=== PATIENT | female | born 1940 | race Caucasian/White ===

== ENCOUNTER 2017-07-23 11:32 | Day surgery (SDC) | payer OTHER, SELFPAY ==
[~2017-07-23] VITALS: Ht 149.9 cm; Wt 56.0 kg
[~2017-07-23 11:32] MED LIST: ALBU90OI6; AMLO5 PO; ASPI325EC PO; ASPI81CH; CILO50; CLOP75 PO; HYDCHL25 PO; IBUP800; LEVSOD100 PO; LISI5; OXYC5; PRAV20; PROCHLORPERAZINE; TIOT18
== END 2017-07-23 14:20 | disposition home or self-care (01) ==
LOC: ORSCSDS 11:32
PROVIDERS: Orthopaedic Surgery
PROC: 01N50ZZ Release Median Nerve, Open Approach (ICD-10-PCS; principal; 2017-07-23 12:45)
DX: G56.01 Carpal tunnel syndrome, right upper limb (principal); E03.9 Hypothyroidism, unspecified; E78.5 Hyperlipidemia, unspecified; I25.2 Old myocardial infarction; I10 Essential (primary) hypertension; F32.9 Major depressive disorder, single episode, unspecified; J44.9 Chronic obstructive pulmonary disease, unspecified; F17.210 Nicotine dependence, cigarettes, uncomplicated; Z79.82 Long term (current) use of aspirin; Z79.899 Other long term (current) drug therapy
CPT/HCPCS: J2250; J3010; J7120

== ENCOUNTER 2017-09-17 14:37 | Day surgery (SDC) | payer OTHER, SELFPAY ==
[~2017-09-17] VITALS: Ht 149.9 cm; Wt 56.3 kg
== END 2017-09-17 17:25 | disposition home or self-care (01) ==
LOC: ORSCSDS 14:37
PROVIDERS: Orthopaedic Surgery
PROC: 01N50ZZ Release Median Nerve, Open Approach (ICD-10-PCS; principal; 2017-09-17 16:00)
DX: G56.02 Carpal tunnel syndrome, left upper limb (principal); I10 Essential (primary) hypertension; J44.9 Chronic obstructive pulmonary disease, unspecified; E03.9 Hypothyroidism, unspecified; E78.5 Hyperlipidemia, unspecified; I73.9 Peripheral vascular disease, unspecified; Z79.899 Other long term (current) drug therapy; F17.210 Nicotine dependence, cigarettes, uncomplicated
CPT/HCPCS: J2250; J3010; J7120

== ENCOUNTER 2018-07-20 13:16 | Inpatient (IN) | payer OTHER ==
[~2018-07-20] VITALS: Ht 147.3 cm; Wt 63.5 kg
[~2018-07-20 13:16] MED LIST changes: -IBUP800; +IBUP800 PO; -TIOT18; +TIOT18 INH
[2018-07-20] MEDS ORDERED: ALBU90OI61 INH (13:58)
[2018-07-20 13:59] LABS: BASOPHILS ABSOLUTE AUTO 0.04 K/mm3 (0.00-0.23); BASOPHILS PERCENT AUTO 0 % (0-2); EOSINOPHILS ABSOLUTE AUTO 0.01 K/mm3 (0.00-0.68); EOSINOPHILS PERCENT AUTO 0 % (0-6); Hematocrit 24.2 % (33.0-51.0); Hemoglobin 7.3 g/dL (11.5-16.0); IMMATURE GRAN ABSOLUTE AUTO 0.06 K/mm3 (0.00-0.10); IMMATURE GRAN PERCENT AUTO 1 % (0-1); LYMPHOCYTES ABSOLUTE AUTO 1.68 K/mm3 (0.84-5.20); LYMPHOCYTES PERCENT AUTO 15 % (21-46); MONOCYTES ABSOLUTE AUTO 1.19 K/mm3 (0.16-1.47); MONOCYTES PERCENT AUTO 10 % (4-13); Mean Corpuscular HGB 28.6 pg (26.0-34.0); Mean Corpuscular HGB Conc 30.2 g/dL (31.5-36.5); Mean Corpuscular Volume 95 fL (80-100); Mean Platelet Volume 8.5 fL (9.1-12.4); NEUTROPHILS ABSOLUTE AUTO 8.45 K/mm3 (1.96-9.15); NEUTROPHILS PERCENT AUTO 74 % (41-73); Platelet Count 549 K/mm3 (150-400); RDW Coefficient Variation 15.2 % (11.7-14.2); RDW Standard Deviation 52.5 fL (35.1-46.3); Red Blood Cell Count 2.55 M/mm3 (3.80-5.20); White Blood Cell Count 11.43 K/mm3 (4.00-11.30)
[2018-07-20] MEDS ORDERED: CLOP75 PO (14:00)
[2018-07-20] MEDS ORDERED: ASPI81CH PO (14:00)
[2018-07-20] MEDS ORDERED: FISH OIL 500 M1 EAC1 PO (14:01)
[2018-07-20 14:19] LABS: Alanine Aminotransfer (ALT/SGP 18 U/L (12-78); Albumin, Blood 3.3 g/dL (3.4-5.0); Albumin/Globulin Ratio 0.8 (0.8-1.8); Alk Phos 86 U/L (50-136); Anion Gap 10 mmol/L (6-16); Aspartate Aminotrans (AST/SGOT 13 U/L (12-37); Bilirubin, Total 0.4 mg/dL (0.1-1.0); Blood Urea Nitrogen 20 mg/dL (8-24); Bun/Creatinine Ratio 27.5 (12.0-20.0); CO2, Blood 25 mmol/L (21-32); Calcium, Blood 8.6 mg/dL (8.5-10.1); Chloride, Blood 98 mmol/L (98-108); Creatinine, Blood 0.73 mg/dL (0.40-1.00); Globulin, Blood 4.2 g/dL (2.2-4.0); Glomerular Filtration Rate >60 (60-); Glucose, Blood 96 mg/dL (70-99); Potassium, Blood 4.1 mmol/L (3.5-5.5); Sodium, Blood 133 mmol/L (136-145); Total Protein, Blood 7.5 g/dL (6.4-8.2); Troponin I <0.015 ng/mL (0.000-0.040)
--- NOTE | 2018-07-20 17:22 | NUR ---
ECHOCARDIOGRAM COMPLETED
[2018-07-20 18:31] LABS: Percent Saturation 5.1 % (15.0-50.0)
[2018-07-20] MEDS ORDERED: LEVSOD100 PO (21:25)
[2018-07-21] MEDS ORDERED: ROSU5 PO (00:35)
[2018-07-21] MEDS ORDERED: Cymbalta30 MG PO (00:37)
[2018-07-21] MEDS ORDERED: OXYC5 PO (00:38)
[2018-07-21] MEDS ORDERED: VITAMIN D-32000 UNIT PO (00:39)
[2018-07-21 04:08] LABS: BASOPHILS ABSOLUTE AUTO 0.05 K/mm3 (0.00-0.23); BASOPHILS PERCENT AUTO 1 % (0-2); EOSINOPHILS ABSOLUTE AUTO 0.02 K/mm3 (0.00-0.68); EOSINOPHILS PERCENT AUTO 0 % (0-6); Hematocrit 25.5 % (33.0-51.0); Hemoglobin 7.9 g/dL (11.5-16.0); IMMATURE GRAN ABSOLUTE AUTO 0.04 K/mm3 (0.00-0.10); IMMATURE GRAN PERCENT AUTO 0 % (0-1); LYMPHOCYTES ABSOLUTE AUTO 0.84 K/mm3 (0.84-5.20); LYMPHOCYTES PERCENT AUTO 9 % (21-46); MONOCYTES ABSOLUTE AUTO 1.43 K/mm3 (0.16-1.47); MONOCYTES PERCENT AUTO 15 % (4-13); Mean Corpuscular HGB 28.4 pg (26.0-34.0); Mean Platelet Volume 8.6 fL (9.1-12.4); NEUTROPHILS ABSOLUTE AUTO 7.38 K/mm3 (1.96-9.15); NEUTROPHILS PERCENT AUTO 76 % (41-73); Platelet Count 448 K/mm3 (150-400); RDW Coefficient Variation 15.8 % (11.7-14.2); RDW Standard Deviation 53.3 fL (35.1-46.3); Red Blood Cell Count 2.78 M/mm3 (3.80-5.20); White Blood Cell Count 9.76 K/mm3 (4.00-11.30)
[2018-07-21 04:09] LABS: Mean Corpuscular Volume 92 fL (80-100)
[2018-07-21 04:50] LABS: Alanine Aminotransfer (ALT/SGP 17 U/L (12-78); Albumin, Blood 2.9 g/dL (3.4-5.0); Albumin/Globulin Ratio 0.8 (0.8-1.8); Alk Phos 78 U/L (50-136); Anion Gap 10 mmol/L (6-16); Aspartate Aminotrans (AST/SGOT 20 U/L (12-37); Bilirubin, Total 0.8 mg/dL (0.1-1.0); Blood Urea Nitrogen 21 mg/dL (8-24); Bun/Creatinine Ratio 27.2 (12.0-20.0); CO2, Blood 24 mmol/L (21-32); Calcium, Blood 7.7 mg/dL (8.5-10.1); Chloride, Blood 100 mmol/L (98-108); Creatinine, Blood 0.77 mg/dL (0.40-1.00); Globulin, Blood 3.7 g/dL (2.2-4.0); Glomerular Filtration Rate >60 (60-); Glucose, Blood 125 mg/dL (70-99); Potassium, Blood 4.1 mmol/L (3.5-5.5); Sodium, Blood 134 mmol/L (136-145); Total Protein, Blood 6.6 g/dL (6.4-8.2)
--- NOTE | 2018-07-21 06:49 | NUR ---
SHIFT SUMMARY PATIENT ADMITTED AT THE BEGINNING OF THE SHIFT. PATIENT VERY PLEASENT AND COOPERATIVE THROUGHOUT THE NIGHT. PATIENT'S ADMIT COMPLETED PER PATIENT REPORT. PATIENT RECIEVED ONE UNIT OF PRBC'S AND APPEARED TO TOLERATE IT WELL. PATIENT MEDICATED FOR BACK PAIN PER EMAR. PATIENT DOES GET SOB WITH EXERTION BUT IS ABLE TO RECOVER QUICKLY. PATIENT APPEARED TO SLEEP WELL FOR SEVERAL HOURS DURING THE END OF THE SHIFT. VITAL SIGNS CHARTED. WILL CONTINUE TO MONITOR PATIENT AND REPORT TO ONCOMING RN.
--- NOTE | 2018-07-21 16:05 | NUR ---
DAUGHTER OF PATIENT BRINGS IN PAPERWORK FROM PREVIOUS HOSPITALIZATION. 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 ORDERED ONE UNIT OF PRBC'S TODAY FOR THIS PATIENT TRANSFUSED FOR A HGB OF 7.9 PT TOLERATED WELL. BP PRIOR TO BLOOD TRANSFUSION WAS 77/55 DURING TRANSFUSION SYSTOLIC BP IN 100 TO 110 RANGE. PT WAS ASYMPTOMATIC DURING TRANSFUSION. SHE ALSO WORKED WITH PT TODAY WHO HAS SIGNED OFF ON PATIENT STATING SHE DOES NOT NEED THERE SERVICES. PT WAS ABLE TO AMBULATE UP AND DOWN HALLWAY. ONLY ISSUE WAS WHEN AMBULATING PT EXPERIENCED PAIN IN HER LOWER LEGS THAT STOPPED WHEN SHE WAS BACK TO ROOM AND SAT DOWN. WILL CONTINUE TO MONITOR THIS PATIENT CLOSELY.
--- NOTE | 2018-07-21 16:42 | NUR ---
CONSENT TO CARE THIS PATIENT GIVES THIS STUDENT RN CONSENT TO PROVIDE CARE FOR HER 07/22/18
[2018-07-22 04:28] LABS: BASOPHILS ABSOLUTE AUTO 0.06 K/mm3 (0.00-0.23); BASOPHILS PERCENT AUTO 1 % (0-2); EOSINOPHILS ABSOLUTE AUTO 0.05 K/mm3 (0.00-0.68); EOSINOPHILS PERCENT AUTO 1 % (0-6); Hematocrit 27.5 % (33.0-51.0); Hemoglobin 8.8 g/dL (11.5-16.0); IMMATURE GRAN ABSOLUTE AUTO 0.05 K/mm3 (0.00-0.10); IMMATURE GRAN PERCENT AUTO 1 % (0-1); LYMPHOCYTES ABSOLUTE AUTO 1.31 K/mm3 (0.84-5.20); LYMPHOCYTES PERCENT AUTO 13 % (21-46); MONOCYTES ABSOLUTE AUTO 1.46 K/mm3 (0.16-1.47); MONOCYTES PERCENT AUTO 14 % (4-13); Mean Corpuscular HGB 28.2 pg (26.0-34.0); Mean Platelet Volume 8.8 fL (9.1-12.4); NEUTROPHILS ABSOLUTE AUTO 7.28 K/mm3 (1.96-9.15); NEUTROPHILS PERCENT AUTO 71 % (41-73); Platelet Count 424 K/mm3 (150-400); RDW Standard Deviation 51.2 fL (35.1-46.3); Red Blood Cell Count 3.12 M/mm3 (3.80-5.20); White Blood Cell Count 10.21 K/mm3 (4.00-11.30)
[2018-07-22 04:33] LABS: Mean Corpuscular Volume 88 fL (80-100)
--- NOTE | 2018-07-22 05:25 | NUR ---
SHIFT SUMMARY PATIENT VERY PLEASENT AND COOPERATIVE THROUGHOUT THE NIGHT. EGG CREATE PLACED ON BED FOR COMFORT AND PATIENT REPORTED THAT SHE FELT HER GENERAL DISCOMFORT HAD IMPROVED SINCE USING THE EGG CREATE AND THAT SHE GOT MORE SLEEP LAST NIGHT DUE TO THE EGG CREATE WELL. PATIENT APPEARED TO SLEEP WELL THROUGHOUT THE NIGHT. PATIENT'S DAUGHTER STAYED THE NIGHT AT THEH BEDSIDE WELL. VITAL SIGNS CHARTED. WILL CONTINUE TO MONITOR PATIENT AND REPORT TO ONCOMING RN.
[2018-07-22 10:15] LABS: Stool Occult Blood Guaiac 1 Pos (Neg)
--- NOTE | 2018-07-22 16:55 | NUR ---
Shift Summary No acute changes since initial shift assessment. VSS. In no apparent sign of distress. Pt is A&Ox4. Denies any pain. Denies any acute complaints since initial shift assessment. Denies any acute complaints or events t/o the shift. Showered today w/o any difficulty. No changes in O2 requirements. GI consult called in and added to ADM, but Dr. Ivy has not been by yet to see pt. Dr. Barajas and Dr. Marrufo both in to see pt today, and plan is to focus on respiratory status at this time. Pt currenlty resting in bed with call light within reach. Denies any further questions, complaints or requests at this time. Pt did have one episode of Afib today w/rate in the 70's for less than 1hr. Currently in SR in the 70's. Denies any CP. Will continue to monitor until report is given to noc shift RN.
--- NOTE | 2018-07-23 04:47 | NUR ---
SUMMARY: NO LABELS MOLDER NIGHT. VSS. TELE NSR IN THE 60S, DENIES CP. PT UP WITH SBA. NO CONCERNS AT THIS TIME. WILL CTM AND REPORT TO DAY RN.
[2018-07-23 05:03] LABS: Hemoglobin 8.5 g/dL (11.5-16.0); Mean Corpuscular HGB 28.9 pg (26.0-34.0); Mean Corpuscular HGB Conc 31.5 g/dL (31.5-36.5); Mean Corpuscular Volume 92 fL (80-100); Mean Platelet Volume 8.5 fL (9.1-12.4); Platelet Count 409 K/mm3 (150-400); RDW Coefficient Variation 15.8 % (11.7-14.2); RDW Standard Deviation 52.5 fL (35.1-46.3); Red Blood Cell Count 2.94 M/mm3 (3.80-5.20); White Blood Cell Count 9.59 K/mm3 (4.00-11.30)
[2018-07-23 05:25] LABS: Anion Gap 6 mmol/L (6-16); Blood Urea Nitrogen 17 mg/dL (8-24); CO2, Blood 28 mmol/L (21-32); Chloride, Blood 98 mmol/L (98-108); Creatinine, Blood 0.59 mg/dL (0.40-1.00); Glomerular Filtration Rate >60 (60-); Glucose, Blood 120 mg/dL (70-99); Potassium, Blood 4.2 mmol/L (3.5-5.5); Sodium, Blood 132 mmol/L (136-145)
--- NOTE | 2018-07-23 06:01 | NUR ---
SUMMARY: NO ACUTE CHANGE OVERNIGHT VSS. PT STABLE ON 3L NC. TELE NSR IN THE 60S. PT DENIES CHEST PAIN. UP WITH SBA, SOME SOB ON EXERTION. NO REPORT OF BLOODY BM. PT HAS BEEN NPO SINCE 0000, PLAN IS FOR UPPER ENDOSCOPY TODAY. PT DAUGHTER AT BEDSIDE, WILL CTM AND REPORT TO DAY RN.
--- NOTE | 2018-07-23 08:20 | NUR ---
INITIAL ASSESSMENT: Pt sitting up at edge of bed. LS diminished with Wheezing throughout. BT positive. HR reg at this time at a rate in the 70's-80's. Pulses palp. Pt has healing scar at midline chest. Pt denies pain at this time. VSS. Call light in reach. Will monitor.
--- NOTE | 2018-07-23 16:40 | NUR ---
History, Chart, Medications and Allergies reviewed before start of procedure. Patient confirms NPO status and agrees with scheduled surgery.
--- NOTE | 2018-07-23 16:45 | NUR ---
update: Pt. taken to day surgery. Will await return.
--- NOTE | 2018-07-23 17:12 | NUR ---
IRREGULAR HEART RHYTHM NOTED ON 3-LEAD EKG. PRINTED STRIPS AND REVIEWED WITH DR CASTILLO AT BEDSIDE. PATIENT DENIES SOB OR CHEST PAIN. NO APPARENT DISTRESS.
--- NOTE | 2018-07-23 17:38 | NUR ---
07/23/18 1650 Tato Escobedo History, Chart, Medications and Allergies reviewed before start of procedure.MONITOR INTACT WITH CONTINUOUS PULSE OXIMETRY AND INTERMITTENT BP.3-LEAD EKG REVIEWED WITH PHYSICIAN PRIOR TO START OF PROCEDURE.O2 VIA N/C INTACT THROUGHOUT SEDATION/PROCEDURE. Patient confirms NPO status and agrees with scheduled surgery.See Anesthesia record.
--- NOTE | 2018-07-23 18:05 | NUR ---
SHIFT SUMMARY: Pt arrived back in room Post procedure. Slightly drowsy but wakes to verbal stimulus and able to answer questions. CL diet ordered. Pt denies pain. VSS. Pt was given broth and seira mist. Pt states that she saw dinosores during the procudure, but that they are gone now. States "I think that anistesia is still wearing off." Will continue to monitor and report this to night rn. Pt has done well this shift. HR has remained SR most of the time but does go into afib in the low 100's when she is moving around at times. She does go back to SR in the 80's when back to bed and resting. LS have remained with wheezing and diminished but biox has remained >90%. Was able to titrate oxygen to off. Pt States that she is feeling good about this. Will report to night rn. Stable at end of shift.
--- NOTE | 2018-07-23 22:50 | NUR ---
ASSUMED CARE OF PATIENT AT [facility] 191 FROM SHAKILA Villatoro RN. PATIENT ALERT AND ORIENTED; A LITTLE DROWSY FROM EGD TODAY. PATIENT TOLERATING CLEAR LIQUID DIET WELL. PATIENT DENIED PAIN AT START OF SHIFT BUT LATER REPORTS PAIN IN HANDS AND GENERAL HANDS; REPORTS TAKES OXYCODONE AT NIGHT AT HOME. PATIENT REPORTS N/T OCCASIONALLY IN WRISTS FROM CARPAL TUNNEL. DENIES DIZZINESS AND NAUSEA. SR ON TELE; OXYGEN SATURATION ABOVE 90% ON ROOM AIR; NEEDED 2LPM VIA NC AFTER SHIFT PAUL; EXP WHEEZES T/O. CABG SCAR CHEST MIDLINE WNL. PIV S/L. PATIENT REPORTS DAUGHTER WILL STAY THE NIGHT TONIGHT. PATIENT CURRENTLY RESTING IN BED; CALL LIGHT IN REACH; BED IN LOWEST POSISITON; BED ALARM ON; WILL CONTINUE TO MONITOR AND ASSESS UNTIL END OF SHIFT.
[2018-07-24 04:08] LABS: Hematocrit 27.9 % (33.0-51.0); Hemoglobin 8.5 g/dL (11.5-16.0); Mean Corpuscular HGB 28.1 pg (26.0-34.0); Mean Corpuscular HGB Conc 30.5 g/dL (31.5-36.5); Mean Corpuscular Volume 92 fL (80-100); Mean Platelet Volume 8.5 fL (9.1-12.4); Platelet Count 443 K/mm3 (150-400); RDW Coefficient Variation 15.9 % (11.7-14.2); RDW Standard Deviation 53.9 fL (35.1-46.3); Red Blood Cell Count 3.02 M/mm3 (3.80-5.20)
[2018-07-24 04:47] LABS: Anion Gap 7 mmol/L (6-16); Blood Urea Nitrogen 16 mg/dL (8-24); CO2, Blood 25 mmol/L (21-32); Calcium, Blood 7.6 mg/dL (8.5-10.1); Chloride, Blood 99 mmol/L (98-108); Creatinine, Blood 0.62 mg/dL (0.40-1.00); Glomerular Filtration Rate >60 (60-); Glucose, Blood 100 mg/dL (70-99); Potassium, Blood 4.2 mmol/L (3.5-5.5); Sodium, Blood 131 mmol/L (136-145)
--- NOTE | 2018-07-24 06:20 | NUR ---
PATIENT SLEPT ABOUT SIX HOURS LAST NIGHT; DAUGHTER SLEPT BEDSIDE. NO ACUTE CHANGES TO REPORT; TOLERATING CLEAR DIET WELL. WILL CONTINUE TO MONITOR AND ASSESS UNTIL END OF SHIFT.
--- NOTE | 2018-07-24 08:00 | NUR ---
INITIAL ASSESSMENT: Pt sitting up in chair eating CL breakfast. States "I'm so hungry! When can I have real food". Told Pt I would ask physician. LS diminished with some faint wheezing. HR irregular in sound, tele shows NSR with some PAC's. BT positive. Pulses palp. Pt denies pain at this time. VSS. Call light in reach. Pt independent in room. Will monitor.
--- NOTE | 2018-07-24 11:38 | NUR ---
I entered patient's room and I introduced myself and stated the purpose of my visit. Patient was sitting in a chair and finishing breakfast. Patient welcomed a spiritual care visit. Patient shared easily and was very open about her loss, her health struggles and her family. I listened empathically, explored her belief system and sources of meaning and conducted a life review. I also reinforced patient's helpful attitudes and practices and praovided prayer. Patient expressed gratitude for the visit and for the prayer and showed signs of elevated mood and restored jo.
[2018-07-24 12:06] LABS: Percent Saturation 3.9 % (15.0-50.0)
--- NOTE | 2018-07-24 17:33 | NUR ---
Shift Summary: Pt sitting up at edge of bed eating dinner with daughter at bedside. Pt has done well this shift. HR has remained in what appears to be a NSR in the 70-80's. At times, when Pt gets up and moves around, her HR does increase to the 90-100's and seems to have some irregular beats during this time but returns to NSR once at rest. Pt has been on RA for most of the day. BIox has remained > 90% at all times. Pt will at times place herself on 1L NC is she is up moving around and getting SOB, but biox has always been >90% and when on 1L oxygen biox increases to 96-97%. Pt diet was increased to cardiac diet this am and pt has tolerated well throughout day. No signs of GI bleeding or abd pain. Pt was changed to medical status. Room available at end of shift. Will transfer to room 355. Report to be called to medical floor and Pt will be transfered. Stable at end of shift.
--- NOTE | 2018-07-25 02:26 | NUR ---
Q 6 H&H UNABLE TO DRAW H&H AT THIS TIME CANNOT BE DRAWN WHILE BLOOD IS TRANSFUSING. ORDER READ TO RUN BLOOD SLOW POSSIBLE. STARTED AT 2330 WILL RUN UNTIL 0330 AND THEN WILL RUN FLUSH. H&H CANCELED AM LABS WILL BE DRAW AT AROUND 0430.
--- NOTE | 2018-07-25 03:45 | NUR ---
SHIFT SUMMARY PT ADMITTED FOR A-FIB WITH RVR WITH THE RATE CONTROLLED AT THIS TIME. FULL CODE. CARDIAC DIET. GUAIAC STOOLS. 20G IV TO R WRIST IS SL. 1L O2 NEED PER PT NEED. PT IS ALERT, ORIENTED, PLEASENT, COOPERATIVE, AND INDEPENDENT WITH CARE. PT HAD OPEN HEART SURGERY IN DEC WITH A NOTED MIDLINE INCISION SCAR. HR WILL INTERMITTENTLY INCREASE TO 90-110 WITH ACTIVITY PER REPORT. UPPER SCOPE NOTED A GASTRIC ULCER WITH PPI FOR 12 WEEKS RECOMMENDED. BLOOD THINNERS ARE DUE TO BE RESTARTED TOMMARROW PER REPORT. PT REPORTED TO THE ED WITH C/O SOB. THE PT DC FROM [facility] FOLLOWING SURGERY ON 4L O2 DUE TO POSTOP PLEURAL EFFUSION AND SMALL PNEUMOTHORAX POSTOP. SOB NOTED TO LIKELY BE SECNDARY TO NEW ONSET A-FIB, POSTOP BILATERAL PLEURAL EFFUSION AND RECENT CORONARY BIPASS, WITH UNDERLYNING COPD AND DECONDITIONING PER REPORT. DAUGHTER IS AT BEDSIDE. THE PT APPEARES TO BE SLEEPING COMFORTABLY AT THIS TIME WITH NO APPARENT SIGNS OF ACUTE DISTRESS. ABLE TO MAKE NEEDS KNOWN AND CALL LIGHT IN REACH.
[2018-07-25 05:12] LABS: BASOPHILS ABSOLUTE AUTO 0.03 K/mm3 (0.00-0.23); BASOPHILS PERCENT AUTO 0 % (0-2); EOSINOPHILS PERCENT AUTO 1 % (0-6); Hematocrit 27.1 % (33.0-51.0); Hemoglobin 8.6 g/dL (11.5-16.0); IMMATURE GRAN ABSOLUTE AUTO 0.06 K/mm3 (0.00-0.10); IMMATURE GRAN PERCENT AUTO 1 % (0-1); LYMPHOCYTES ABSOLUTE AUTO 1.02 K/mm3 (0.84-5.20); LYMPHOCYTES PERCENT AUTO 10 % (21-46); MONOCYTES ABSOLUTE AUTO 1.57 K/mm3 (0.16-1.47); MONOCYTES PERCENT AUTO 15 % (4-13); Mean Corpuscular HGB 28.5 pg (26.0-34.0); Mean Corpuscular HGB Conc 31.7 g/dL (31.5-36.5); Mean Corpuscular Volume 90 fL (80-100); Mean Platelet Volume 8.5 fL (9.1-12.4); NEUTROPHILS PERCENT AUTO 73 % (41-73); Platelet Count 432 K/mm3 (150-400); RDW Coefficient Variation 15.2 % (11.7-14.2); RDW Standard Deviation 49.8 fL (35.1-46.3); Red Blood Cell Count 3.02 M/mm3 (3.80-5.20); White Blood Cell Count 10.28 K/mm3 (4.00-11.30)
[2018-07-25 05:35] LABS: Alanine Aminotransfer (ALT/SGP 23 U/L (12-78); Albumin, Blood 2.5 g/dL (3.4-5.0); Albumin/Globulin Ratio 0.6 (0.8-1.8); Alk Phos 70 U/L (50-136); Anion Gap 8 mmol/L (6-16); Aspartate Aminotrans (AST/SGOT 17 U/L (12-37); Bilirubin, Total 0.5 mg/dL (0.1-1.0); Blood Urea Nitrogen 14 mg/dL (8-24); Bun/Creatinine Ratio 22.1 (12.0-20.0); CO2, Blood 26 mmol/L (21-32); Calcium, Blood 7.7 mg/dL (8.5-10.1); Chloride, Blood 94 mmol/L (98-108); Creatinine, Blood 0.63 mg/dL (0.40-1.00); Globulin, Blood 3.9 g/dL (2.2-4.0); Glomerular Filtration Rate >60 (60-); Glucose, Blood 120 mg/dL (70-99); Potassium, Blood 4.1 mmol/L (3.5-5.5); Sodium, Blood 128 mmol/L (136-145); Total Protein, Blood 6.4 g/dL (6.4-8.2)
--- NOTE | 2018-07-25 19:27 | NUR ---
SHIFT SUMMARY- PT HAS HAD NO ACUTE CHANGES T/O THE SHIFT. RECIEVED A NEW IV D/T OLD ONE LEAKING, RECIEVED FIRST DOSE OF IV IRON THIS EVENING, SECOND DOSE DUE TOMORROW MORNING. PLANS TO WATCH H&H AND ENSURE PT STABLE THEN DC HER HOME. ORDER FOR GUIAC STOOL, NO SAMPLE YET, HAT IN THE TOILET, PT AWARE OF SAMPLE NEED WILL CALL IF SHE HAS A SAMPLE.
[2018-07-26 05:06] LABS: BASOPHILS ABSOLUTE AUTO 0.03 K/mm3 (0.00-0.23); BASOPHILS PERCENT AUTO 0 % (0-2); EOSINOPHILS ABSOLUTE AUTO 0.14 K/mm3 (0.00-0.68); EOSINOPHILS PERCENT AUTO 2 % (0-6); Hematocrit 26.9 % (33.0-51.0); Hemoglobin 8.4 g/dL (11.5-16.0); IMMATURE GRAN ABSOLUTE AUTO 0.04 K/mm3 (0.00-0.10); IMMATURE GRAN PERCENT AUTO 0 % (0-1); LYMPHOCYTES ABSOLUTE AUTO 0.66 K/mm3 (0.84-5.20); LYMPHOCYTES PERCENT AUTO 7 % (21-46); MONOCYTES ABSOLUTE AUTO 1.36 K/mm3 (0.16-1.47); MONOCYTES PERCENT AUTO 14 % (4-13); Mean Corpuscular HGB 28.8 pg (26.0-34.0); Mean Corpuscular HGB Conc 31.2 g/dL (31.5-36.5); Mean Corpuscular Volume 92 fL (80-100); Mean Platelet Volume 8.5 fL (9.1-12.4); NEUTROPHILS ABSOLUTE AUTO 7.26 K/mm3 (1.96-9.15); NEUTROPHILS PERCENT AUTO 77 % (41-73); Platelet Count 452 K/mm3 (150-400); RDW Coefficient Variation 14.8 % (11.7-14.2); RDW Standard Deviation 50.6 fL (35.1-46.3); Red Blood Cell Count 2.92 M/mm3 (3.80-5.20); White Blood Cell Count 9.49 K/mm3 (4.00-11.30)
[2018-07-26 05:46] LABS: Magnesium, Blood 1.9 mg/dL (1.6-2.4)
[2018-07-26 05:49] LABS: Alanine Aminotransfer (ALT/SGP 27 U/L (12-78); Albumin, Blood 2.5 g/dL (3.4-5.0); Albumin/Globulin Ratio 0.7 (0.8-1.8); Alk Phos 72 U/L (50-136); Anion Gap 9 mmol/L (6-16); Aspartate Aminotrans (AST/SGOT 23 U/L (12-37); Bilirubin, Total 0.3 mg/dL (0.1-1.0); Blood Urea Nitrogen 12 mg/dL (8-24); Bun/Creatinine Ratio 17.8 (12.0-20.0); CO2, Blood 26 mmol/L (21-32); Calcium, Blood 7.5 mg/dL (8.5-10.1); Chloride, Blood 94 mmol/L (98-108); Creatinine, Blood 0.67 mg/dL (0.40-1.00); Globulin, Blood 3.8 g/dL (2.2-4.0); Glomerular Filtration Rate >60 (60-); Glucose, Blood 109 mg/dL (70-99); Sodium, Blood 129 mmol/L (136-145); Total Protein, Blood 6.3 g/dL (6.4-8.2)
--- NOTE | 2018-07-26 06:43 | NUR ---
07/26/18 0630 AWAKE AND WATCHING TV. PT STARTS SHE SLEPT WELL FIRST HALF OF SHIFT. CHEERFUL AND FEELING SLIGHTLY BETTER THIS AM. VITALS STABLE.
--- NOTE | 2018-07-26 07:16 | NUR ---
ASSUMED CARE OF PT- RECIEVED REPORT FROM NIGHT JESSE MARCANO. PER REPORT PT SLEPT WELL FOR THE FIRST HALF OF THE NIGHT. PT RECIEVED HOME DOSE OF OXY FOR PAIN IN HER HANDS, PT STATES SHE TAKES OXY AT BEDTIME AT HOME FOR THIS REASON. WILL ASSESS PT SHORTLY.
[2018-07-26] MEDS ORDERED: Acetaminophen325 M1 PO (09:02)
[2018-07-26] MEDS ORDERED: Amiodarone HCl200 MG PO (09:03)
[2018-07-26] MEDS ORDERED: Pacerone400 MG PO (09:03)
[2018-07-26] MEDS ORDERED: GAVILAX17 GM PO (09:04)
[2018-07-26] MEDS ORDERED: PANT40 PO (09:04)
--- NOTE | 2018-07-26 11:19 | NUR ---
Spiritual care visit conducted. Patient welcomed me into the room and I found her sitting on the side of her bed and alert. Patient informed me that she was "going home today." Patient said that she felt good and that the staff at the hospital was amazing and that she received excellent care. Because therapeutic alliance was already established from a prior visit, patient openly shared about her life, her spiritual conversion and the deep pain of the loss of her . I listened empathically, reinforced helpful attitudes and practices, provided spiritual direction and provided prayer. Patient expressed gratitude for the visit and the prayer and showed signs of an elevated mood.
--- NOTE | 2018-07-26 17:15 | NUR ---
DISCHARGE NOTE- PT WAS GIVEN VERBAL AND WRITTEN DISCHARGE INSTRUCTIONS AND ACKNOWLEDGED UNDERSTANDING OF THEM. PT DAUGHTER PRESENT AT THE TIME OF DISCHARGE. PT ON 2L O2 SATS WELL. SATS 81% ON ROOM AIR. PT AWARE SHE NEEDS TO WEAR THE O2 CONTINUOUSLY. PT ESCORTED OUT VIA W/C BY THE RN PORTABLE HOME O2 ON AND RUNNING AT THE TIME OF DISCHARGE.
== END 2018-07-26 15:55 | disposition home or self-care (01) | DRG 308 ==
LOC: ER 13:16 → PCU 17:56 → MEDS 07-24 19:45 → ENPENDDIS 07-26 09:00 → MEDS 07-26 15:55
PROVIDERS: Internal Medicine; Internal Medicine Cardiovascular Disease; Physician Assistant; ADMIT Internal Medicine
PROC: 30233N1 Transfusion of Nonautologous Red Blood Cells into Peripheral Vein, Percutaneous Approach (ICD-10-PCS; principal; 2018-07-21)
PROC: 0DJ08ZZ Inspection of Upper Intestinal Tract, Via Natural or Artificial Opening Endoscopic (ICD-10-PCS; 2018-07-23)
DX: I48.0 Paroxysmal atrial fibrillation (principal); K25.4 Chronic or unspecified gastric ulcer with hemorrhage; J96.11 Chronic respiratory failure with hypoxia; I31.3 Pericardial effusion (noninflammatory); J44.1 Chronic obstructive pulmonary disease with (acute) exacerbation; Z95.1 Presence of aortocoronary bypass graft; I25.10 Atherosclerotic heart disease of native coronary artery without angina pectoris; I95.9 Hypotension, unspecified; E03.9 Hypothyroidism, unspecified; E78.5 Hyperlipidemia, unspecified; M19.90 Unspecified osteoarthritis, unspecified site; Z79.82 Long term (current) use of aspirin; Z79.891 Long term (current) use of opiate analgesic; I10 Essential (primary) hypertension; G89.29 Other chronic pain; D63.8 Anemia in other chronic diseases classified elsewhere; F17.210 Nicotine dependence, cigarettes, uncomplicated; I73.9 Peripheral vascular disease, unspecified; K20.9 Esophagitis, unspecified
CPT/HCPCS: 36415; 36430; 71046; 80048; 80053; 82270; 82728; 83540; 83550; 83735; 83880; 84443; 84484; 85025; 85027; 86850; 86900; 86901; 86923; 93005; 93010; 93306; 94640; 94760; 97162; 97530; 99285-25; C9113; J1940; J2250; J2405; J2916; J7120; P9016

== ENCOUNTER 2018-08-25 13:10 | Inpatient (IN) | payer OTHER ==
[~2018-08-25] VITALS: Ht 144.8 cm; Wt 54.1 kg
[~2018-08-25 13:10] MED LIST changes: +ALBU90OI61 INH; +ASPI81CH PO; +Acetaminophen325 M1 PO; +Amiodarone HCl200 MG PO; +Cymbalta30 MG PO; +FISH OIL 500 M1 EAC1 PO; +GAVILAX17 GM PO; +OXYC5 PO; +PANT40 PO; +Pacerone400 MG PO; +ROSU5 PO; +VITAMIN D-32000 UNIT PO
[2018-08-25] MEDS ORDERED: ASPI81CH PO (14:08)
[2018-08-25] MEDS ORDERED: XARELTO20 MG PO (14:08)
[2018-08-25] MEDS ORDERED: LISI20 PO (14:08)
[2018-08-25 14:10] LABS: BASOPHILS ABSOLUTE AUTO 0.03 K/mm3 (0.00-0.23); BASOPHILS PERCENT AUTO 0 % (0-2); EOSINOPHILS ABSOLUTE AUTO 0.02 K/mm3 (0.00-0.68); EOSINOPHILS PERCENT AUTO 0 % (0-6); Hematocrit 20.2 % (33.0-51.0); IMMATURE GRAN ABSOLUTE AUTO 0.03 K/mm3 (0.00-0.10); IMMATURE GRAN PERCENT AUTO 0 % (0-1); LYMPHOCYTES ABSOLUTE AUTO 1.12 K/mm3 (0.84-5.20); LYMPHOCYTES PERCENT AUTO 15 % (21-46); MONOCYTES ABSOLUTE AUTO 0.59 K/mm3 (0.16-1.47); MONOCYTES PERCENT AUTO 8 % (4-13); Mean Corpuscular HGB 27.4 pg (26.0-34.0); Mean Corpuscular HGB Conc 29.7 g/dL (31.5-36.5); Mean Platelet Volume 8.3 fL (9.1-12.4); NEUTROPHILS ABSOLUTE AUTO 5.48 K/mm3 (1.96-9.15); NEUTROPHILS PERCENT AUTO 75 % (41-73); Platelet Count 411 K/mm3 (150-400); RDW Coefficient Variation 17.5 % (11.7-14.2); RDW Standard Deviation 59.5 fL (35.1-46.3); Red Blood Cell Count 2.19 M/mm3 (3.80-5.20); White Blood Cell Count 7.27 K/mm3 (4.00-11.30)
[2018-08-25 14:16] LABS: Alanine Aminotransfer (ALT/SGP 14 U/L (12-78); Albumin, Blood 3.2 g/dL (3.4-5.0); Albumin/Globulin Ratio 0.9 (0.8-1.8); Alk Phos 57 U/L (50-136); Anion Gap 10 mmol/L (6-16); Aspartate Aminotrans (AST/SGOT 9 U/L (12-37); Bilirubin, Total 0.2 mg/dL (0.1-1.0); Blood Urea Nitrogen 23 mg/dL (8-24); Bun/Creatinine Ratio 30.1 (12.0-20.0); CO2, Blood 22 mmol/L (21-32); Calcium, Blood 7.9 mg/dL (8.5-10.1); Chloride, Blood 101 mmol/L (98-108); Creatinine, Blood 0.77 mg/dL (0.40-1.00); Globulin, Blood 3.4 g/dL (2.2-4.0); Glomerular Filtration Rate >60 (60-); Glucose, Blood 172 mg/dL (70-99); Potassium, Blood 3.8 mmol/L (3.5-5.5); Sodium, Blood 133 mmol/L (136-145); Total Protein, Blood 6.6 g/dL (6.4-8.2); Troponin I <0.015 ng/mL (0.000-0.040)
[2018-08-25 14:17] LABS: Mean Corpuscular Volume 92 fL (80-100)
[2018-08-25 14:20] LABS: International Normalized Ratio 1.58; Prothrombin Time Results 16.1 Sec (9.7-11.5)
--- NOTE | 2018-08-25 19:35 | NUR ---
SHIFT SUMMARY 1740 PT RECEIVED FROM ER. ALERT AND ORIENTED X3. DENIES PAIN AT THIS TIME. LUNG SOUNDS EXPIRATORY WHEEZES THROUGHOUT. NSR RATE IN THE 70s ON TELEMETRY. SCATTERED BRUISING NOTED. PROTONIX GTT RUNNING. 1ST UNIT OF PRBC STARTED, VSS. NO REACTIONS NOTED. WILL CONTINUE TO MONITOR.
--- NOTE | 2018-08-26 01:07 | NUR ---
PCU NIGHTSHIFT ASSUMED CARE OF PT APPROX. 0700. PT A&OX4. ASSESSMENT COMPLETED. VITAL SIGNS STABLE. PBC'S CURRENTLY RUNNING AT THIS TIME. NO S/SX OF REACTION OR ACUTE DISTRESS. FAMILY AT BEDSIDE. PT REPORTS N&T IN BUE DUE TO CARPAL TUNNEL AND ARTHRITIS. BED IN LOW POSITION, CALL LIGHT IN REACH. PT DENIES ANY NEEDS AT THIS TIME.
[2018-08-26 02:16] LABS: Hematocrit 26.8 % (33.0-51.0); Hemoglobin 8.5 g/dL (11.5-16.0)
--- NOTE | 2018-08-26 05:04 | NUR ---
SHIFT SUMMARY PT PLEASANT, COOPERATIVE, AND USES CALL LIGHT APPROPRIATELY. PT REMAINS A&O X4. ASSESSMENT FINDINGS REMAIN UNCHANGED. VITAL SIGNS REMAIN STABLE. 2 UNITS PRB'S GIVEN PER ORDERS. HGB INCREASED TO 8.5 POST TRANSFUSION. NO S/SX OF ACUTE DISTRESS. FAMILY REMAINS AT BEDSIDE. PT ABLE TO AMBULATE TO BATHROOM DURING SHIFT AND TOLERATED WELL. BED IN LOW POSITION, CALL LIGHT IN REACH, AND PT DENIES ANY NEEDS AT THIS TIME. WILL CONTINUE TO MONITOR UNTIL HANDOFF TO DAYSHIFT RN.
[2018-08-26 06:04] LABS: Hematocrit 29.2 % (33.0-51.0)
[2018-08-26 06:35] LABS: Anion Gap 7 mmol/L (6-16); Blood Urea Nitrogen 19 mg/dL (8-24); Bun/Creatinine Ratio 27.5 (12.0-20.0); CO2, Blood 24 mmol/L (21-32); Calcium, Blood 7.8 mg/dL (8.5-10.1); Chloride, Blood 105 mmol/L (98-108); Creatinine, Blood 0.69 mg/dL (0.40-1.00); Glomerular Filtration Rate >60 (60-); Glucose, Blood 99 mg/dL (70-99); Potassium, Blood 4.3 mmol/L (3.5-5.5); Sodium, Blood 136 mmol/L (136-145)
[2018-08-26 10:35] LABS: Hematocrit 30.7 % (33.0-51.0)
--- NOTE | 2018-08-26 10:40 | NUR ---
Spiritual care visit conducted. Patient is known to me from prior visits. Patient shared about her recent health history, incresed weakness and "some sort of bleed." Patient admitted to feeling stress about not knowing exactly what is going on. I listened empathically, provided anxiety containment, quoted appropriate scriptures and provided prayer. Patient responded well and showed signs of reduced stress and an elevated mood.
--- NOTE | 2018-08-26 12:59 | NUR ---
History, Chart, Medications and Allergies reviewed before start of procedure. Patient confirms NPO status and agrees with scheduled surgery.
--- NOTE | 2018-08-26 13:27 | NUR ---
08/26/18 1327 Alvin Mosqueda 3-LEAD EKG REVIEWED WITH PHYSICIAN PRIOR TO START OF PROCEDURE.PATIENT CONFIRMS NPO STATUS AND AGREES WITH SCHEDULED PROCEDURE.History, Chart, Medications and Allergies reviewed before start of procedure. MONITOR INTACT WITH CONTINUOUS PULSE OXIMETRY AND INTERMITTENT BP.O2 VIA N/C INTACT THROUGHOUT SEDATION/PROCEDURE.Bite Block Placed
[2018-08-26 14:16] LABS: Hematocrit 28.7 % (33.0-51.0); Hemoglobin 8.7 g/dL (11.5-16.0)
[2018-08-26 18:09] LABS: Hematocrit 30.9 % (33.0-51.0); Hemoglobin 9.5 g/dL (11.5-16.0)
--- NOTE | 2018-08-26 18:41 | NUR ---
SHIFT SUMMARY PT RESTING IN BED THROUGHOUT THE DAY. VSS. ALERT AND ORIENTED X3. UP TO BATHROOM WITH STANDBY ASSIST. PT HAD UPPER ENDOSCOPY TODAY, VSS AFTER PROCEDURE. TOLERATING REGULAR DIET WELL. DENIES PAIN THROUGHOUT THE DAY. LUNG SOUNDS EXPIRATORY WHEEZES THROUGHOUT. C/O NUMBNESS TO HANDS TODAY. NSR RATE IN THE 60s ON TELEMETRY. DAUGHTER AT BEDSIDE. WILL CONTINUE TO MONITOR.
[2018-08-26 22:21] LABS: Hematocrit 28.4 % (33.0-51.0); Hemoglobin 8.6 g/dL (11.5-16.0)
--- NOTE | 2018-08-27 03:03 | NUR ---
ASSUMED CARE AT 1900. DENIES ANY PAIN. NO APPETITE AND DESIRES NO HS SNACK. VERY WEAK , DENIES DIZZINESS W/ ONE PERSON ASSIST TO BR. PROTONIX NOT DCD AND CONT. ONLY FLUIDS. PO MED PER HX AT HS FOR BILAT HAND AND WRIST PAIN. GOOD RELIEF FALLING OFF TO SLEEP. REFUSED SCDS. REPORTS BOTH THUMBS NUMB PER HX. MOIST COUGH,. RA WNL.
[2018-08-27 04:21] LABS: Hematocrit 28.5 % (33.0-51.0); Hemoglobin 8.6 g/dL (11.5-16.0); Mean Corpuscular HGB 26.4 pg (26.0-34.0); Mean Corpuscular HGB Conc 30.2 g/dL (31.5-36.5); Mean Platelet Volume 8.4 fL (9.1-12.4); Platelet Count 331 K/mm3 (150-400); RDW Coefficient Variation 17.8 % (11.7-14.2); RDW Standard Deviation 56.2 fL (35.1-46.3); Red Blood Cell Count 3.26 M/mm3 (3.80-5.20); White Blood Cell Count 7.69 K/mm3 (4.00-11.30)
[2018-08-27 04:22] LABS: Mean Corpuscular Volume 87 fL (80-100)
--- NOTE | 2018-08-27 06:37 | NUR ---
SHIFT SUMMARY. EARLY AMIODARONE GIVEN DUE TO BP 180/80. NOW REDUCED TO 145/70. NO CALLS TO MD, W/ H+H SAME 6 HR AGO. NO STOOL. DENIES ANY DISCOMFORT. NOT INTERESTSED IN FLUIDS OR FOOD
[2018-08-27 11:33] LABS: Percent Saturation 5.7 % (15.0-50.0)
--- NOTE | 2018-08-27 14:33 | NUR ---
Spiritual care visit conducted. Patient is known to this ghost writer. Patient shared about her increased strength and that she was being moved to the medical floor. I celebrated with the patient, provided companionship and emotional support. Patient responded well and expressed gratitiude for the visit.
--- NOTE | 2018-08-27 17:40 | NUR ---
Call to Dr. Morris regarding blood pressure which has been trending upwards. The pt usually takes lisinopril daily. Resuming home dose at this time per Dr. Morris's orders.
[2018-08-28 04:10] LABS: BASOPHILS ABSOLUTE AUTO 0.05 K/mm3 (0.00-0.23); BASOPHILS PERCENT AUTO 1 % (0-2); EOSINOPHILS ABSOLUTE AUTO 0.13 K/mm3 (0.00-0.68); EOSINOPHILS PERCENT AUTO 2 % (0-6); Hematocrit 29.1 % (33.0-51.0); Hemoglobin 8.9 g/dL (11.5-16.0); IMMATURE GRAN ABSOLUTE AUTO 0.02 K/mm3 (0.00-0.10); IMMATURE GRAN PERCENT AUTO 0 % (0-1); LYMPHOCYTES ABSOLUTE AUTO 1.02 K/mm3 (0.84-5.20); LYMPHOCYTES PERCENT AUTO 16 % (21-46); MONOCYTES ABSOLUTE AUTO 0.88 K/mm3 (0.16-1.47); MONOCYTES PERCENT AUTO 14 % (4-13); Mean Corpuscular HGB 26.6 pg (26.0-34.0); Mean Corpuscular HGB Conc 30.6 g/dL (31.5-36.5); Mean Corpuscular Volume 87 fL (80-100); Mean Platelet Volume 8.1 fL (9.1-12.4); NEUTROPHILS ABSOLUTE AUTO 4.11 K/mm3 (1.96-9.15); NEUTROPHILS PERCENT AUTO 66 % (41-73); Platelet Count 343 K/mm3 (150-400); RDW Coefficient Variation 17.2 % (11.7-14.2); RDW Standard Deviation 53.1 fL (35.1-46.3); Red Blood Cell Count 3.34 M/mm3 (3.80-5.20); White Blood Cell Count 6.21 K/mm3 (4.00-11.30)
--- NOTE | 2018-08-28 04:22 | NUR ---
PCU NOC SHIFT SUMMARY PATIENT ALERT AND ORIENTED X4. RESPIRATION E/U ON ROOM AIR. VSS. PATIENT MED NO TELE. NO ACUTE CHANGES NOTED T/O SHIFT AND PATIENT SLEPT WELL. WILL CONTINUE TO MONITOR AND REPORT TO DAYSHIFT RN.
[2018-08-28 04:28] LABS: Alanine Aminotransfer (ALT/SGP 15 U/L (12-78); Albumin, Blood 2.7 g/dL (3.4-5.0); Albumin/Globulin Ratio 0.9 (0.8-1.8); Alk Phos 61 U/L (50-136); Anion Gap 8 mmol/L (6-16); Aspartate Aminotrans (AST/SGOT 15 U/L (12-37); Bilirubin, Total 0.5 mg/dL (0.1-1.0); Blood Urea Nitrogen 14 mg/dL (8-24); Bun/Creatinine Ratio 16.6 (12.0-20.0); CO2, Blood 27 mmol/L (21-32); Chloride, Blood 101 mmol/L (98-108); Creatinine, Blood 0.85 mg/dL (0.40-1.00); Globulin, Blood 3.1 g/dL (2.2-4.0); Glomerular Filtration Rate >60 (60-); Glucose, Blood 104 mg/dL (70-99); Potassium, Blood 3.8 mmol/L (3.5-5.5); Sodium, Blood 136 mmol/L (136-145); Total Protein, Blood 5.8 g/dL (6.4-8.2)
--- NOTE | 2018-08-28 08:00 | NUR ---
ASSUMED CARE: REPORT RECEIVED FROM NOELLE Crowley RN. ASSUMED CARE OF THIS PT AT APPROX 0700. ON ASSESSMENT, THE PT IS AWAKE, SITTING UP IN BED. SHE IS A&O, INDEPENDENT IN THE ROOM & COMPLETING HER OWN ADLs PRN. SHE DENIES PAIN OR NEEDS THIS AM. WILL CONTINUE TO MONITOR & UPDATE NEEDED.
--- NOTE | 2018-08-28 09:30 | NUR ---
DR. PRAKASH: PROVIDER AT BEDSIDE TO SEE PT, UPDATED ON POC. IRON REPLETION ORDERS HAVE BEEN PLACED & PROVIDER HAS TOLD PT SHE WILL NOT D/C HOME TODAY. NO OTHER CHANGES. WILL CONTINUE TO MONITOR & UPDATE NEEDED.
--- NOTE | 2018-08-28 12:45 | NUR ---
Initial visit: Palliative Care Consult for AD/POLST and advanced care planning. Pt is A&Ox4 and denies pain at this time. Pt is of [place] jo and lives at home alone with her cat. She reports adequate support from her daughter and son in law. Engaged in conversation about advanced directives and POLST. Pt expressess interest and would like to complete an advance directive at home after discussion with her daughter. Educated Pt on areas of advanced directive to be completed and instructed her to contact palliative care for any questions regarding completing form. Pt reports no concerns at this time. Spoke with Pt's nurse Santa and she reports no concerns at this time. Plan is to obtain copy of AD once complete and will remain available.
--- NOTE | 2018-08-28 15:26 | NUR ---
ASSUMED CARE OF PT.
--- NOTE | 2018-08-28 18:49 | NUR ---
SHIFT SUMMARY PT ALERT AND ORIENTED. PT INDEPENDENT IN ROOM. VS STABLE. O2 SATS >92% ON RA. PT DENIES ANY PAIN OR DISCOMFORT. NO CHANGES SINCE INITIAL ASSESSMENT. WILL CONTINUE TO MONITOR AND REPORT TO ONCOMING RN. CALL LIGHT IN REACH.
--- NOTE | 2018-08-28 21:30 | NUR ---
ASSUMED CARE OF PATIENT AT APPROXIMATELY 1905 FROM SEUN Arellano RN. PATIENT ALERT AND ORIENTED X4; INDEPENDENT IN ROOM; MEDICAL NO TELE STATUS. PATIENT REPORTS CHRONIC PAIN IN HANDS; SCHEDULED PAIN MEDICATION GIVEN. PATIENT REPORTS N/T IN HANDS R/T CARPAL TUNNEL. PATIENT DENIES NAUSEA AND DIZZINESS; SOME WEAKNESS NOTED. OXYGEN SATURATION ABOVE 90% ON ROOM AIR. DISHCARGE IN AM. PATIENT CURRENTLY SLEEPING IN BED; CALL LIGHT IN REACH; BED IN LOWEST POSISITION. WILL CONTINUE TO MONITOR AND ASSESS UNTIL END OF SHIFT.
[2018-08-29 03:49] LABS: BASOPHILS ABSOLUTE AUTO 0.04 K/mm3 (0.00-0.23); BASOPHILS PERCENT AUTO 1 % (0-2); EOSINOPHILS ABSOLUTE AUTO 0.08 K/mm3 (0.00-0.68); EOSINOPHILS PERCENT AUTO 1 % (0-6); Hematocrit 29.5 % (33.0-51.0); Hemoglobin 8.9 g/dL (11.5-16.0); IMMATURE GRAN ABSOLUTE AUTO 0.03 K/mm3 (0.00-0.10); IMMATURE GRAN PERCENT AUTO 0 % (0-1); LYMPHOCYTES ABSOLUTE AUTO 0.94 K/mm3 (0.84-5.20); LYMPHOCYTES PERCENT AUTO 14 % (21-46); MONOCYTES ABSOLUTE AUTO 0.79 K/mm3 (0.16-1.47); MONOCYTES PERCENT AUTO 12 % (4-13); Mean Corpuscular HGB 25.9 pg (26.0-34.0); Mean Corpuscular HGB Conc 30.2 g/dL (31.5-36.5); Mean Corpuscular Volume 86 fL (80-100); Mean Platelet Volume 8.6 fL (9.1-12.4); NEUTROPHILS ABSOLUTE AUTO 4.92 K/mm3 (1.96-9.15); NEUTROPHILS PERCENT AUTO 72 % (41-73); Platelet Count 360 K/mm3 (150-400); RDW Coefficient Variation 17.3 % (11.7-14.2); RDW Standard Deviation 52.8 fL (35.1-46.3); Red Blood Cell Count 3.44 M/mm3 (3.80-5.20)
[2018-08-29 03:57] LABS: RETICULOCYTE ABSOLUTE 0.1593 M/mm3 (0.0200-0.1100); RETICULOCYTE COUNT PERCENT 4.63 % (0.50-2.50)
[2018-08-29 04:20] LABS: Anion Gap 8 mmol/L (6-16); Blood Urea Nitrogen 20 mg/dL (8-24); CO2, Blood 29 mmol/L (21-32); Calcium, Blood 8.2 mg/dL (8.5-10.1); Chloride, Blood 98 mmol/L (98-108); Creatinine, Blood 0.83 mg/dL (0.40-1.00); Glomerular Filtration Rate >60 (60-); Glucose, Blood 109 mg/dL (70-99); Sodium, Blood 135 mmol/L (136-145)
--- NOTE | 2018-08-29 08:30 | NUR ---
ASSUMED CARE: REPORT RECEIVED FROM FAMILIA Do RN. ASSUMED CARE OF THIS PT AT APPROX 0700. ROUNDING COMPLETE, THE PT IS SITTING UP IN BED COMFORTABLY AT THAT TIME. SHE DENIES NEEDS OR PAIN THIS AM. WILL CONTINUE TO MONITOR & UPDATE NEEDED.
--- NOTE | 2018-08-29 09:20 | NUR ---
DR. PRAKASH: PROVIDER AT BEDSIDE TO SEE PT. STS SHE MAY D/C HOME TODAY ONCE IRON INFUSION COMPLETE. ORDERS PLACED. PT's DAUGHTER HAS BEEN NOTIFIED & WILL BE COMING TO GET THE PT SOON. MIK Romero, CHARGE NURSE, COMPLETING D/C PACKET. WILL CONTINUE TO MONITOR & UPDATE NEEDED.
[2018-08-29] MEDS ORDERED: CLOP75 PO (09:29)
--- NOTE | 2018-08-29 11:04 | NUR ---
DISCHARGE TO HOME: PIV REMOVED, PT HAS GOTTEN SELF DRESSED. DAUGHTER IN ROOM TO TRANSPORT PT HOME. D/C INSTRUCTIONS HAVE BEEN DISCUSSED & D/C PACKET TAKEN W/ PT. THEY EXPRESS CONCERN FOR RECURRENT GIB, THEY PT IS INSTRUCTED TO RETURN TO ED IF ANY FURTHER GI BLEEDING. THEY DENY OTHER QUESTIONS. MEDS CALLED TO [facility] ON DRAKE PER PT REQUEST. ALL BELONGINGS HAVE BEEN COLLECTED BY PT & PT's DAUGHTER.
== END 2018-08-29 10:55 | disposition home or self-care (01) | DRG 812 ==
LOC: ER 13:10 → PCU 16:29
PROVIDERS: Internal Medicine; Nurse Practitioner Acute Care; Physician Assistant; Student in an Organized Health Care Education/Training Program; ADMIT Internal Medicine
PROC: 30233N1 Transfusion of Nonautologous Red Blood Cells into Peripheral Vein, Percutaneous Approach (ICD-10-PCS; 2018-08-26)
PROC: 0DJ08ZZ Inspection of Upper Intestinal Tract, Via Natural or Artificial Opening Endoscopic (ICD-10-PCS; principal; 2018-08-26 09:45)
DX: D62 Acute posthemorrhagic anemia (principal); K92.2 Gastrointestinal hemorrhage, unspecified; Z79.01 Long term (current) use of anticoagulants; I25.10 Atherosclerotic heart disease of native coronary artery without angina pectoris; E03.9 Hypothyroidism, unspecified; I73.9 Peripheral vascular disease, unspecified; K44.9 Diaphragmatic hernia without obstruction or gangrene; I48.0 Paroxysmal atrial fibrillation; D50.9 Iron deficiency anemia, unspecified; J44.9 Chronic obstructive pulmonary disease, unspecified; E78.5 Hyperlipidemia, unspecified; F17.210 Nicotine dependence, cigarettes, uncomplicated
CPT/HCPCS: 36415; 36430; 71046; 80048; 80053; 82272; 82607; 82728; 82746; 83540; 83550; 83880; 84443; 84484; 85014; 85018; 85025; 85027; 85045; 85610; 86850; 86900; 86901; 86923; 93005; 93010; 94640; 94664; 94667; 94760; 96365; 98960; 99285-25; 99407; C9113; J2916; J7030; J7120; P9016

== ENCOUNTER → 2020-09-14 | Outpatient (CLI) | payer OTHER ==
[~2020-09-14] MED LIST changes: +AZIT250 PO; +CEFP200 PO; +CILO100 PO; +LISI20 PO; +Prednisone50 MG PO; +Voltaren100 GM TOP; +XARELTO20 MG PO
[2020-09-14 15:36] LABS: Source, Urine Clean Catch
[2020-09-14 18:26] LABS: Appearance, Urine Cloudy (Clear); Bilirubin, Urine Neg (Neg); Blood, Urine 4+ (Neg); Color, Urine Amber (P-Yellow); Glucose Qualitative, Urine Neg (Neg); Ketones, Urine Neg (Neg); Leukocyte Esterase, Urine 1+ (Neg); Nitrite, Urine Neg (Neg); Protein, Urine 1+ (Neg); Specific Gravity, Urine 1.015 (1.003-1.022); Urobilinogen, Urine NORM (Normal)
[2020-09-14 18:32] LABS: Bacteria Many /hpf; Mucus Light (0-Heavy); Red Blood Cells, Urine TNTC /hpf (0-2); Squamous Epithelial Cells Few /hpf (Few)
== END | disposition home or self-care (01) ==
LOC: LAB 15:00 → LAB SHORT 15:00
PROVIDERS: Internal Medicine
DX: R31.0 Gross hematuria (principal)
CPT/HCPCS: 81001; 87077; 87086; 87186

== ENCOUNTER → 2020-09-22 | Outpatient (CLI) | payer OTHER ==
[2020-09-22 16:27] LABS: Source, Urine Voided
[2020-09-22 19:05] LABS: Appearance, Urine Clear (Clear); Bilirubin, Urine Neg (Neg); Blood, Urine Neg (Neg); Color, Urine Yellow (P-Yellow); Glucose Qualitative, Urine Neg (Neg); Ketones, Urine Neg (Neg); Leukocyte Esterase, Urine 1+ (Neg); Nitrite, Urine Neg (Neg); Protein, Urine Neg (Neg); Urobilinogen, Urine NORM (Normal); pH, Urine 6.5 (5.0-8.0)
[2020-09-22 19:15] LABS: Bacteria Mod /hpf; Red Blood Cells, Urine Not Seen /hpf (0-2); Squamous Epithelial Cells Few /hpf (Few); White Blood Cells, Urine 0-2 /hpf (0-5)
== END | disposition home or self-care (01) ==
LOC: LAB 07:30 → LAB SHORT 07:30 → LAB FUT 09-15 15:15
PROVIDERS: Internal Medicine
DX: N39.0 Urinary tract infection, site not specified (principal)
CPT/HCPCS: 81001; 87086

== ENCOUNTER 2020-10-25 15:00 | Emergency (ER) | payer OTHER ==
[~2020-10-25] VITALS: Ht 144.8 cm; Wt 53.1 kg
[~2020-10-25 15:00] MED LIST changes: -AZIT250 PO; -CEFP200 PO; -CILO100 PO; -Prednisone50 MG PO; -Voltaren100 GM TOP
[2020-10-25 15:54] LABS: BASOPHILS ABSOLUTE AUTO 0.05 K/mm3 (0.00-0.23); BASOPHILS PERCENT AUTO 0 % (0-2); EOSINOPHILS ABSOLUTE AUTO 0.02 K/mm3 (0.00-0.68); EOSINOPHILS PERCENT AUTO 0 % (0-6); Hematocrit 32.2 % (33.0-51.0); IMMATURE GRAN ABSOLUTE AUTO 0.07 K/mm3 (0.00-0.10); IMMATURE GRAN PERCENT AUTO 0 % (0-1); LYMPHOCYTES ABSOLUTE AUTO 1.21 K/mm3 (0.84-5.20); LYMPHOCYTES PERCENT AUTO 7 % (21-46); MONOCYTES ABSOLUTE AUTO 1.35 K/mm3 (0.16-1.47); MONOCYTES PERCENT AUTO 8 % (4-13); Mean Corpuscular HGB 28.1 pg (26.0-34.0); Mean Corpuscular HGB Conc 31.1 g/dL (31.5-36.5); Mean Corpuscular Volume 90 fL (80-100); Mean Platelet Volume 8.4 fL (9.1-12.4); NEUTROPHILS ABSOLUTE AUTO 14.22 K/mm3 (1.96-9.15); NEUTROPHILS PERCENT AUTO 84 % (41-73); Platelet Count 354 K/mm3 (150-400); RDW Coefficient Variation 14.1 % (11.7-14.2); RDW Standard Deviation 47.1 fL (35.1-46.3); Red Blood Cell Count 3.56 M/mm3 (3.80-5.20); White Blood Cell Count 16.92 K/mm3 (4.00-11.30)
[2020-10-25 16:16] LABS: Alanine Aminotransfer (ALT/SGP 15 U/L (12-78); Albumin, Blood 3.1 g/dL (3.4-5.0); Albumin/Globulin Ratio 0.8 (0.8-1.8); Alk Phos 57 U/L (50-136); Anion Gap 8 mmol/L (6-16); Aspartate Aminotrans (AST/SGOT 11 U/L (12-37); Bilirubin, Total 0.6 mg/dL (0.1-1.0); Blood Urea Nitrogen 13 mg/dL (8-24); Bun/Creatinine Ratio 14.8 (12.0-20.0); CO2, Blood 21 mmol/L (21-32); Calcium, Blood 8.3 mg/dL (8.5-10.1); Chloride, Blood 105 mmol/L (98-108); Creatinine, Blood 0.88 mg/dL (0.40-1.00); Globulin, Blood 3.7 g/dL (2.2-4.0); Glomerular Filtration Rate >60 (60-); Glucose, Blood 93 mg/dL (70-99); Potassium, Blood 3.9 mmol/L (3.5-5.5); Sodium, Blood 134 mmol/L (136-145); Total Protein, Blood 6.8 g/dL (6.4-8.2)
[2020-10-25] MEDS ORDERED: CILO100 PO (17:01)
[2020-10-25] MEDS ORDERED: Voltaren100 GM TOP (17:02)
[2020-10-25 18:23] LABS: Source, Urine Clean Catch
[2020-10-25 18:38] LABS: Appearance, Urine Clear (Clear); Bilirubin, Urine Neg (Neg); Blood, Urine Neg (Neg); Color, Urine Yellow (P-Yellow); Glucose Qualitative, Urine Neg (Neg); Ketones, Urine Neg (Neg); Leukocyte Esterase, Urine 1+ (Neg); Nitrite, Urine Neg (Neg); Protein, Urine Neg (Neg); Urobilinogen, Urine NORM (Normal); pH, Urine 6.5 (5.0-8.0)
[2020-10-25 19:06] LABS: Bacteria Few /hpf; Red Blood Cells, Urine 0-2 /hpf (0-2); Squamous Epithelial Cells Few /hpf (Few)
[2020-10-25] MEDS ORDERED: CEFP200 PO (19:14)
[2020-10-25] MEDS ORDERED: AZIT250 PO (19:14)
[2020-10-25] MEDS ORDERED: Prednisone50 MG PO (19:26)
== END 2020-10-25 19:45 | disposition home or self-care (01) ==
LOC: ER 15:00
PROVIDERS: Emergency Medicine; Physician Assistant
DX: J44.0 Chronic obstructive pulmonary disease with (acute) lower respiratory infection (principal); J18.9 Pneumonia, unspecified organism; J44.1 Chronic obstructive pulmonary disease with (acute) exacerbation; Z79.899 Other long term (current) drug therapy; Z79.02 Long term (current) use of antithrombotics/antiplatelets; Z88.0 Allergy status to penicillin; Z88.2 Allergy status to sulfonamides; I10 Essential (primary) hypertension; F17.200 Nicotine dependence, unspecified, uncomplicated
CPT/HCPCS: 36415; 71046; 80053; 81001; 85025; 87086; 93005; 93010; 94640; 99284-25; A9270; A9270-GY; J7512

== ENCOUNTER 2021-06-05 11:30 | Inpatient (IN) | payer OTHER ==
[~2021-06-05] VITALS: Ht 147.3 cm; Wt 47.3 kg
[~2021-06-05 11:30] MED LIST changes: +AZIT250 PO; +CEFP200 PO; +CILO100 PO; +PRED20 PO; +Prednisone50 MG PO; -VITAMIN D-32000 UNIT PO; +VITAMIN D33000 UNIT PO; +Voltaren100 GM TOP; +Zithromax250 MG PO
[2021-06-05] MEDS ORDERED: ADVAIR HFA (12:16)
[2021-06-05 12:17] LABS: BASOPHILS ABSOLUTE AUTO 0.02 K/mm3 (0.00-0.23); BASOPHILS PERCENT AUTO 0 % (0-2); EOSINOPHILS ABSOLUTE AUTO 0.07 K/mm3 (0.00-0.68); EOSINOPHILS PERCENT AUTO 1 % (0-6); Hematocrit 34.3 % (33.0-51.0); Hemoglobin 10.8 g/dL (11.5-16.0); IMMATURE GRAN ABSOLUTE AUTO 0.17 K/mm3 (0.00-0.10); IMMATURE GRAN PERCENT AUTO 1 % (0-1); LYMPHOCYTES PERCENT AUTO 14 % (21-46); MONOCYTES ABSOLUTE AUTO 1.05 K/mm3 (0.16-1.47); MONOCYTES PERCENT AUTO 8 % (4-13); Mean Corpuscular HGB Conc 31.5 g/dL (31.5-36.5); Mean Corpuscular Volume 95 fL (80-100); Mean Platelet Volume 8.3 fL (9.1-12.4); NEUTROPHILS PERCENT AUTO 76 % (41-73); Platelet Count 534 K/mm3 (150-400); RDW Coefficient Variation 15.8 % (11.7-14.2); RDW Standard Deviation 55.8 fL (35.1-46.3); White Blood Cell Count 12.81 K/mm3 (4.00-11.30)
[2021-06-05] MEDS ORDERED: OMEGA-3 FISH O1 EAC5 PO (12:19)
[2021-06-05] MEDS ORDERED: FERSU300 PO (12:21)
[2021-06-05] MEDS ORDERED: ASCO500 PO (12:21)
[2021-06-05] MEDS ORDERED: TRIDERM28.4 GM TOP (12:21)
[2021-06-05] MEDS ORDERED: MOME.1TO TOP (12:23)
[2021-06-05 12:40] LABS: Alanine Aminotransfer (ALT/SGP 36 U/L (12-78); Albumin, Blood 2.6 g/dL (3.4-5.0); Albumin/Globulin Ratio 0.6 (0.8-1.8); Alk Phos 60 U/L (50-136); Anion Gap 8 mmol/L (6-16); Aspartate Aminotrans (AST/SGOT 19 U/L (12-37); Bilirubin, Total 0.2 mg/dL (0.1-1.0); Blood Urea Nitrogen 20 mg/dL (8-24); Bun/Creatinine Ratio 26.8 (12.0-20.0); CO2, Blood 25 mmol/L (21-32); Calcium, Blood 8.8 mg/dL (8.5-10.1); Chloride, Blood 102 mmol/L (98-108); Creatinine, Blood 0.75 mg/dL (0.40-1.00); Glomerular Filtration Rate >60 (60-); Glucose, Blood 104 mg/dL (70-99); Potassium, Blood 4.1 mmol/L (3.5-5.5); Sodium, Blood 135 mmol/L (136-145); Total Protein, Blood 6.6 g/dL (6.4-8.2); Troponin I <0.015 ng/mL (0.000-0.040)
[2021-06-05 12:59] LABS: Influenza A, PCR NEGATIVE (NEGATIVE); Influenza B, PCR NEGATIVE (NEGATIVE); Resp Syncytial Virus, PCR NEGATIVE (NEGATIVE); SARS-Cov-2 (COVID-19) PCR, MMC NEGATIVE (NEGATIVE)
[2021-06-05 18:28] LABS: Percent Saturation 27.3 % (15.0-50.0)
[2021-06-06 05:19] LABS: BASOPHILS ABSOLUTE AUTO 0.01 K/mm3 (0.00-0.23); BASOPHILS PERCENT AUTO 0 % (0-2); EOSINOPHILS PERCENT AUTO 0 % (0-6); Hematocrit 31.7 % (33.0-51.0); Hemoglobin 9.8 g/dL (11.5-16.0); IMMATURE GRAN ABSOLUTE AUTO 0.15 K/mm3 (0.00-0.10); IMMATURE GRAN PERCENT AUTO 2 % (0-1); LYMPHOCYTES PERCENT AUTO 11 % (21-46); MONOCYTES ABSOLUTE AUTO 0.22 K/mm3 (0.16-1.47); MONOCYTES PERCENT AUTO 3 % (4-13); Mean Corpuscular HGB Conc 30.9 g/dL (31.5-36.5); Mean Corpuscular Volume 97 fL (80-100); Mean Platelet Volume 8.5 fL (9.1-12.4); NEUTROPHILS ABSOLUTE AUTO 6.41 K/mm3 (1.96-9.15); NEUTROPHILS PERCENT AUTO 85 % (41-73); Platelet Count 477 K/mm3 (150-400); RDW Coefficient Variation 15.9 % (11.7-14.2); RDW Standard Deviation 57.1 fL (35.1-46.3); Red Blood Cell Count 3.27 M/mm3 (3.80-5.20); White Blood Cell Count 7.59 K/mm3 (4.00-11.30)
[2021-06-06 06:26] LABS: Alanine Aminotransfer (ALT/SGP 30 U/L (12-78); Albumin, Blood 2.3 g/dL (3.4-5.0); Albumin/Globulin Ratio 0.7 (0.8-1.8); Alk Phos 53 U/L (50-136); Anion Gap 9 mmol/L (6-16); Aspartate Aminotrans (AST/SGOT 15 U/L (12-37); Bilirubin, Total 0.1 mg/dL (0.1-1.0); Blood Urea Nitrogen 25 mg/dL (8-24); Bun/Creatinine Ratio 29.4 (12.0-20.0); CO2, Blood 25 mmol/L (21-32); Calcium, Blood 8.5 mg/dL (8.5-10.1); Chloride, Blood 105 mmol/L (98-108); Creatinine, Blood 0.85 mg/dL (0.40-1.00); Globulin, Blood 3.3 g/dL (2.2-4.0); Glomerular Filtration Rate >60 (60-); Glucose, Blood 145 mg/dL (70-99); Potassium, Blood 5.3 mmol/L (3.5-5.5); Sodium, Blood 139 mmol/L (136-145); Total Protein, Blood 5.6 g/dL (6.4-8.2)
--- NOTE | 2021-06-06 16:32 | NUR ---
SHIFT SUMMARY PATIENT DENIES PAIN, NAUSEA, AND SHORTNESS OF BREATH. PATIENT REPORTS BEING SHORT OF BREATH WITH ACTIVITY. PATIENT IS ON 2L O2 VIA N/C. PATIENT MAINTAINING SATS IN THE MID 90S. PATIENT WORKED WITH OT AND PT TODAY. PATIENT IS A SBA TO THE BATHROOM. PATIENT HAD A VISITOR THIS AFTERNOON. PATIENT IS EATING AND DRINKING WELL. PATIENT IS PLEASANT AND COOPERATIVE WITH CARE.
--- NOTE | 2021-06-07 04:48 | NUR ---
SHIFT SUMMARY PT UP TO RESTROOM WITH ONE PERSON ASSIST A FEW TIMES THIS SHIFT. PT PLEASANT AND RESTING THROUGHOUT NIGHT. FLUIDS STILL INFUSING. CALL LIGHT WITHIN REACH AND WILL CONTINUE TO MONITOR.
[2021-06-07 05:49] LABS: BASOPHILS ABSOLUTE AUTO 0.02 K/mm3 (0.00-0.23); BASOPHILS PERCENT AUTO 0 % (0-2); EOSINOPHILS PERCENT AUTO 0 % (0-6); Hematocrit 30.2 % (33.0-51.0); Hemoglobin 9.3 g/dL (11.5-16.0); IMMATURE GRAN ABSOLUTE AUTO 0.22 K/mm3 (0.00-0.10); IMMATURE GRAN PERCENT AUTO 1 % (0-1); LYMPHOCYTES PERCENT AUTO 5 % (21-46); MONOCYTES ABSOLUTE AUTO 0.38 K/mm3 (0.16-1.47); MONOCYTES PERCENT AUTO 2 % (4-13); Mean Corpuscular HGB 30.4 pg (26.0-34.0); Mean Corpuscular HGB Conc 30.8 g/dL (31.5-36.5); Mean Corpuscular Volume 99 fL (80-100); Mean Platelet Volume 8.6 fL (9.1-12.4); NEUTROPHILS PERCENT AUTO 92 % (41-73); Platelet Count 460 K/mm3 (150-400); RDW Coefficient Variation 16.3 % (11.7-14.2); RDW Standard Deviation 58.3 fL (35.1-46.3); Red Blood Cell Count 3.06 M/mm3 (3.80-5.20); White Blood Cell Count 16.72 K/mm3 (4.00-11.30)
[2021-06-07 06:47] LABS: Anion Gap 11 mmol/L (6-16); Blood Urea Nitrogen 27 mg/dL (8-24); Bun/Creatinine Ratio 40.1 (12.0-20.0); CO2, Blood 21 mmol/L (21-32); Calcium, Blood 8.1 mg/dL (8.5-10.1); Chloride, Blood 107 mmol/L (98-108); Creatinine, Blood 0.67 mg/dL (0.40-1.00); Glomerular Filtration Rate >60 (60-); Glucose, Blood 121 mg/dL (70-99); Potassium, Blood 4.8 mmol/L (3.5-5.5); Sodium, Blood 139 mmol/L (136-145)
[2021-06-07] MEDS ORDERED: LEVOFLOXACIN750 MG PO (15:38)
[2021-06-07] MEDS ORDERED: CALYPXO HP CRE113 GM TOP (15:41)
[2021-06-07] MEDS ORDERED: METPRE4DP PO (15:42)
[2021-06-07] MEDS ORDERED: IPRAT-ALBUT 0.5-3 ML INH (15:44)
[2021-06-07] MEDS ORDERED: PROAIR DIGIHAL90 MCG INH (15:57)
--- NOTE | 2021-06-07 16:32 | NUR ---
DISCHARGE DISCHARGE MEDICATIONS AND INSTRUCTIONS EXPLAINED TO PATIENT AND PATIENT'S DAUGHTER. THEY STATED UNDERSTANDING. PCP FOLLOW UP SCHEDULED. HOME HEALTH DECLINED. IV REMOVED WITHOUT ISSUE. BELONGIGNS WITH PATIENT. PATIENT TRANSFERED TO PRIVATE VEHICLE VIA WHEELCHAIR.
== END 2021-06-07 16:24 | disposition home health service (06) | DRG 177 ==
LOC: ER 11:30 → ERHOLD 14:16 → MEDS 20:20
PROVIDERS: Family Medicine; Physician Assistant; Student in an Organized Health Care Education/Training Program; ADMIT Internal Medicine
DX: J15.6 Pneumonia due to other Gram-negative bacteria (principal); J96.01 Acute respiratory failure with hypoxia; J44.0 Chronic obstructive pulmonary disease with (acute) lower respiratory infection; J44.1 Chronic obstructive pulmonary disease with (acute) exacerbation; Z20.822 Contact with and (suspected) exposure to COVID-19; I25.10 Atherosclerotic heart disease of native coronary artery without angina pectoris; I10 Essential (primary) hypertension; I73.9 Peripheral vascular disease, unspecified; E03.9 Hypothyroidism, unspecified; E78.5 Hyperlipidemia, unspecified; M19.90 Unspecified osteoarthritis, unspecified site; F17.210 Nicotine dependence, cigarettes, uncomplicated; Z88.2 Allergy status to sulfonamides; Z88.0 Allergy status to penicillin; Z88.8 Allergy status to other drugs, medicaments and biological substances; Z88.5 Allergy status to narcotic agent; Z79.899 Other long term (current) drug therapy; Z85.118 Personal history of other malignant neoplasm of bronchus and lung; Z92.3 Personal history of irradiation; Z79.02 Long term (current) use of antithrombotics/antiplatelets; Z79.52 Long term (current) use of systemic steroids; Z98.890 Other specified postprocedural states; Z90.710 Acquired absence of both cervix and uterus
CPT/HCPCS: 0241U; 36415; 71045; 71260; 80048; 80053; 82728; 83540; 83550; 84484; 85025; 87070; 87205; 93005; 93010; 94640; 94664; 94760; 94762; 96365; 96366; 96375; 96376; 97110; 97162; 97165; 97530; 97535; 99285-25; A9270; J1650; J1956; J2930; J7030; J7040; Q9967